=== PATIENT | female | born 1945 | race Caucasian/White ===

== ENCOUNTER 2016-11-24 22:36 | Emergency (ER) | payer MEDICARE, SELFPAY ==
[2016-11-24 22:38] VITALS: BMI 40.4
[2016-11-24 23:07] VITALS: BP 134/79; PULSE 76; TEMP 98.7
--- NOTE | 2016-11-25 00:42 | EDPRACDOC ---
<Marcelino Palma - Last Filed: 11/25/16 01:45> - General Information Information Source: Patient - History of Present Illness Onset: 1 WEEK HPI: C/o left hip pain, rash and itch x [address] Salguero and was given bactrim for 10 days. Took for 6 days but then stopped because it made her sick on her stomach. No change in rash since starting the abx. Denies fever, cp, sob, N/V/D , cough, sore throat, change in urine or BM. Med hx = HTN, HDL, DM, acid reflux. Surgical hx = none. No blood thinner. Rash Location: Reports: Legs (left lateral hip and left buttock) Quality: Reports: Pruritic, Red, Scaly Known Exposure To: Denies: Chemical, Cosmetic, Lice, Measles, Medication, Poison Nasreen, Scabies, Varicella, Rubella, STD, Other Relevant History of: Reports: Other (DM) Irritability: Moderate Pain Severity: Mild Associated Signs and Symptoms: Reports: None <Arnel Novoa - Last Filed: 11/25/16 04:17> - General Information Chief Complaint: Hip Pain Stated Complaint: LEFT HIP REDNESS/PAIN Time Seen by Provider: 11/25/16 00:32 Home Medications: Home Medications Insulin Glargine,Hum.rec.anlog [Lantus] 32 units SQ HS 09/28/12 Quinapril HCl [Accupril] 20 mg PO DAILY 10/05/13 Aspirin (Enteric Coated) [Halfprin] 81 mg PO DAILY 03/04/14 Furosemide [Lasix] 40 mg PO DAILY 03/04/14 Calcium Carbonate/Vitamin D3 [Calcium 600 + Vit D Tablet] 1 tab PO BID 12/22/14 Rosuvastatin Calcium [Crestor] 5 mg PO QHS 03/07/15 Albuterol Sulfate [Proair Hfa] 2 puff INH .Q4-6H PRN 06/13/15 ClonazePAM [Klonopin] 0.5 mg PO BID PRN 06/13/15 Fluticasone Propionate [Flonase Nasal [place]] 1 spray NALDO BID 06/13/15 Sertraline HCl [Zoloft] 150 mg PO DAILY 06/13/15 Esomeprazole Mag Trihydrate [Nexium] 40 mg PO DAILY 03/19/16 Levothyroxine [Synthroid, Levoxyl] 88 mcg PO DAILY 03/19/16 Tramadol HCl [Ultram] 50 mg PO DAILY 03/19/16 Cephalexin Monohydrate [Keflex] 500 mg PO Q6H #20 cap 10/22/16 Fluticasone Propionate [Flonase Nasal [place]] 2 spray NALDO DAILY #1 each 10/22/16 Promethazine Dextromethorphan [Phenergan DM] 5 ml PO Q6 PRN #120 ml 10/22/16 Betamethasone Valerate 15 gm TP DAILY 20 Days 11/25/16 HydrOXYzine HCl (Antihistamine [Atarax] 25 mg PO Q6 PRN #30 tab 11/25/16 Allergies/Adverse Reactions: Allergies Allergy/AdvReac Type Severity Reaction Status Date / Time levofloxacin [From Levaquin] AdvReac Unknown Hives* Verified 11/24/16 23:07 ED Past Medical History - History Reviewed Yes Nurses notes reviewed and agree except as marked - Patient Medical History Cardiac History: Reports: Atrial Fibrillation, Hypertension, Congestive Heart Failure (history of CHF, unkown type.), Hypercholesterolemia GI/ History: Reports: Renal Disease (PROTENURIA), Gastroesophageal Reflux Musculoskeletal History: Reports: Arthritis Psychological History: Reports: Anxiety. Denies: Depression, Substance Use Disorder Systemic History: Reports: Diabetes (iddm), Hypothyroidism Surgical History: Reports: Tonsillectomy/Adnoidectomy, Other (SKIN GRAFTS) - Family Medical History Reports: Diabetes (2 brothers, 1 sister), Cancer (Mother: stomach cancer), Stroke (Father), Cardiac Disorders (Aunt, sister) - Social Medical History Smoking Status: Former smoker Social History: Denies: Substance Use Disorder <Arnel Novoa - Last Filed: 11/25/16 04:17> EDM Review of Systems - Review of Systems ROS Negative Except as Marked: Yes All systems reviewed and were negative except as marked Integumentary: Rash (left hip, left buttock) Endocrine: Diabetes <Arnel Novoa - Last Filed: 11/25/16 04:17> - Physical Exam Last recorded Vital Signs: Last Vital Signs Temp 98.7 F 11/24/16 23:03 Pulse 76 11/24/16 23:03 Resp 20 11/24/16 23:03 BP 134/79 11/24/16 23:03 Pulse Ox 96 11/24/16 23:03 Oxygen Pulse Oxygen Saturation 96 O2 Device Room Air Oxygen Flow Rate Fraction of Inspired Oxygen ( FIO2) <Marcelino Palma - Last Filed: 11/25/16 01:45> - Physical Exam Constitutional: No apparent distress, Alert Oriented to: Time, Person, Place Last recorded Vital Signs: Last Vital Signs Temp 98.7 F 11/24/16 23:03 Pulse 76 11/24/16 23:03 Resp 20 11/24/16 23:03 BP 134/79 11/24/16 23:03 Pulse Ox 96 11/24/16 23:03 Oxygen Pulse Oxygen Saturation 96 O2 Device Room Air Oxygen Flow Rate Fraction of Inspired Oxygen ( FIO2) - HEENT Head: Normal Eye Exam: negative: Conjunctival Injection, Scleral Icterus Oropharynx: negative: Drooling TMJ: Normal Nose: No Symptoms Reported Neck: Normal - Respiratory/Cardiovascular Respiratory: Normal - CTA Cardiovascular: Normal - GI Auscultation: Normal Palpation: Normal Tenderness: Non tender - Musculoskeletal Back: Normal Extremities: Normal - Integumentary Skin: Rash (left hip and buttock. red scaly, raised,) - Neurologic Mood Description: Normal Thought: Coherent Perception: Normal <Arnel Novoa - Last Filed: 11/25/16 04:17> Decision Time to Discharge: 01:45 - Departure Yes I personally saw and evaluated the patient. Disposition: Home Education/Counseling Given To: Patient Education/Counseling Given Regarding: Diagnosis, Treatment, Prognosis, Follow Up <Marcelino Palma - Last Filed: 11/25/16 01:45> <Arnel Novoa - Last Filed: 11/25/16 04:17> - Departure Condition: Good Final Diagnosis: Eczema Qualifiers: Eczema type: unspecified Qualified Code(s): L30.9 - Dermatitis, unspecified Instructions: Dermatitis (ED) Referrals: Todd Mart MD [Primary Care Provider] - One Week Prescriptions: Betamethasone Valerate 15 gm TP DAILY 20 Days HydrOXYzine HCl (Antihistamine [Atarax] 25 mg PO Q6 PRN #30 tab PRN Reason: Itching
[2016-11-25] MEDS ORDERED: DIPHENHYDRAMINE 25 MG CAP PO ONE (01:45)
== END 2016-11-25 02:06 | disposition home or self-care (01) ==
LOC: ED 22:36
DX: L30.9 Dermatitis, unspecified (principal)
CPT/HCPCS: 99282; A9270; J3490

== ENCOUNTER 2016-11-28 23:45 | Emergency (ER) | payer MEDICARE, SELFPAY ==
[2016-11-28 23:50] VITALS: BMI 40.4
[2016-11-28 23:57] VITALS: BP 134/71; PULSE 82; TEMP 98.2
--- NOTE | 2016-11-29 00:03 | EDPRACDOC ---
- General Information Chief Complaint: Lower Leg Pain Stated Complaint: LT LEG PAIN Time Seen by Provider: 11/28/16 23:56 Information Source: Patient Home Medications: Home Medications Insulin Glargine,Hum.rec.anlog [Lantus] 32 units SQ HS 09/28/12 Quinapril HCl [Accupril] 20 mg PO DAILY 10/05/13 Aspirin (Enteric Coated) [Halfprin] 81 mg PO DAILY 03/04/14 Furosemide [Lasix] 40 mg PO DAILY 03/04/14 Calcium Carbonate/Vitamin D3 [Calcium 600 + Vit D Tablet] 1 tab PO BID 12/22/14 Rosuvastatin Calcium [Crestor] 5 mg PO QHS 03/07/15 Albuterol Sulfate [Proair Hfa] 2 puff INH .Q4-6H PRN 06/13/15 ClonazePAM [Klonopin] 0.5 mg PO BID PRN 06/13/15 Fluticasone Propionate [Flonase Nasal [place]] 1 spray NALDO BID 06/13/15 Sertraline HCl [Zoloft] 150 mg PO DAILY 06/13/15 Esomeprazole Mag Trihydrate [Nexium] 40 mg PO DAILY 03/19/16 Levothyroxine [Synthroid, Levoxyl] 88 mcg PO DAILY 03/19/16 Tramadol HCl [Ultram] 50 mg PO DAILY 03/19/16 Cephalexin Monohydrate [Keflex] 500 mg PO Q6H #20 cap 10/22/16 Fluticasone Propionate [Flonase Nasal [place]] 2 spray NALDO DAILY #1 each 10/22/16 Promethazine Dextromethorphan [Phenergan DM] 5 ml PO Q6 PRN #120 ml 10/22/16 Betamethasone Valerate 15 gm TP DAILY 20 Days 11/25/16 HydrOXYzine HCl (Antihistamine [Atarax] 25 mg PO Q6 PRN #30 tab 11/25/16 Tramadol HCl [Ultram] 50 - 100 mg PO Q6 #15 tablet 11/29/16 Allergies/Adverse Reactions: Allergies Allergy/AdvReac Type Severity Reaction Status Date / Time levofloxacin [From Levaquin] AdvReac Unknown Hives* Verified 11/28/16 23:57 - History of Present Illness Onset: days HPI: LEFT KNEE PAIN FOR A WEEK. WORSE WITH WEIGHT BEARING. H/O ARTHRITIS. RAN OUT OF ULTRAM. COULD NOT GET COMFORTABLE TO SLEEP TONIGHT. PAIN MINIMAL AT REST. - Treatment Prior to ED Arrival Reported Medications/Treatment [facility] Treatment B[facility] ED Past Medical History - History Reviewed Yes Nurses notes reviewed and agree except as marked - Patient Medical History Cardiac History: Reports: Atrial Fibrillation, Hypertension, Congestive Heart Failure (history of CHF, unkown type.), Hypercholesterolemia GI/ History: Reports: Renal Disease (PROTENURIA), Gastroesophageal Reflux Musculoskeletal History: Reports: Arthritis Psychological History: Reports: Anxiety. Denies: Depression, Substance Use Disorder Systemic History: Reports: Diabetes (iddm), Hypothyroidism Surgical History: Reports: Tonsillectomy/Adnoidectomy, Other (SKIN GRAFTS) - Family Medical History Reports: Diabetes (2 brothers, 1 sister), Cancer (Mother: stomach cancer), Stroke (Father), Cardiac Disorders (Aunt, sister) - Social Medical History Smoking Status: Former smoker Social History: Denies: Substance Use Disorder EDM Review of Systems - Review of Systems ROS Negative Except as Marked: Yes All systems reviewed and were negative except as marked Constitutional: No Symptoms Reported Respiratory: Shortness of Breath (CHRONIC) Cardiovascular: No Symptoms Reported Gastrointestinal: No Symptoms Reported Genitourinary: No Symptoms Reported Neurological: No Symptoms Reported Allergic/Immunologic: No Symptoms Reported - Physical Exam Constitutional: Alert (Awake), No apparent distress Oriented to: Time, Person, Place Last recorded Vital Signs: Last Vital Signs Temp 98.2 F 11/28/16 23:53 Pulse 82 11/28/16 23:53 Resp 20 11/28/16 23:53 BP 134/71 11/28/16 23:53 Pulse Ox 97 11/28/16 23:53 Oxygen Pulse Oxygen Saturation 97 O2 Device Oxygen Flow Rate Fraction of Inspired Oxygen ( FIO2) - HEENT Head: Normal ( normocephalic) Eye Exam: Normal (PERRL, EOMI, Sclera white) Oropharynx: Normal (Pharynx:Moist without exudate,Gums-no swelling) Nose: No Symptoms Reported (septum midline) Neck: Normal (FROM, trachea at midline) - Respiratory/Cardiovascular Respiratory: Normal - CTA (BBS clear to auscultation without adventitious sounds ) Cardiovascular: Normal (RRR without murmur, gallop or rub) - GI Auscultation: Normal (NABS) Palpation: Normal (Soft,No rebound or guarding, non distended) Tenderness: Non tender Cason's Sign: Negative - Musculoskeletal Back: Normal (Non-Tender) Extremities: Normal (Normal tone, Pulses 2+ No cyanosis or edema, FROM) - Integumentary Skin: Normal, Warm, Dry, Other (LEFT LATERAL THIGH, BANDAGED. MULTIPLE SUPERFICAL ULCERATIONS. NO EVIDENCE OF INFECTION.) Lymphatics: Normal (no adenopathy) - Neurologic Memory Impaired: Normal Motor Function: Normal (Normal tone, Pulses 2+ No cyanosis or edema, FROM) Cranial Nerve: Normal (CN II-X11 intact sensation, strength 5/5) Cerebellar: Normal Mood Description: Normal Perception: Normal ED Knee Problem Phys Exam - Musculoskeletal Knee: Normal Thigh: Normal Lower Leg: Normal Distal Function/Circulation: Normal Decision Time to Discharge: 00:02 - Departure Yes I personally saw and evaluated the patient. Disposition: Home Condition: Stable Final Diagnosis: Left knee pain Qualifiers: Chronicity: acute Qualified Code(s): M25.562 - Pain in left knee Instructions: RICE Therapy (ED) Education/Counseling Given To: Patient Education/Counseling Given Regarding: Diagnosis Referrals: Todd Mart MD [Primary Care Provider] - One Week Prescriptions: Tramadol HCl [Ultram] 50 - 100 mg PO Q6 #15 tablet
[2016-11-29] MEDS ORDERED: TRAMADOL HCL 50 MG TAB PO ONE (00:06)
== END 2016-11-29 00:16 | disposition home or self-care (01) ==
LOC: ED 23:45
DX: M25.562 Pain in left knee (principal); E03.9 Hypothyroidism, unspecified; K21.9 Gastro-esophageal reflux disease without esophagitis; F41.9 Anxiety disorder, unspecified; I48.91 Unspecified atrial fibrillation; I10 Essential (primary) hypertension; E78.00 Pure hypercholesterolemia, unspecified; Z79.4 Long term (current) use of insulin; Z79.899 Other long term (current) drug therapy; E11.622 Type 2 diabetes mellitus with other skin ulcer; L97.121 Non-pressure chronic ulcer of left thigh limited to breakdown of skin; L30.9 Dermatitis, unspecified; M19.90 Unspecified osteoarthritis, unspecified site; I50.9 Heart failure, unspecified; G62.9 Polyneuropathy, unspecified; Z87.891 Personal history of nicotine dependence
CPT/HCPCS: 97597; 99282; A9270; G0463; 99213; J3490